=== PATIENT | female | born 1985 | race Caucasian/White ===

== ENCOUNTER 2023-12-22 05:23 | Emergency (ER) | payer MEDICARE, OTHER, SELFPAY ==
[2023-12-22 05:27] VITALS: BP 130/67; BMI 45.0
[2023-12-22 05:51] LABS: % Basophils 0.4 % (0-2); % Eosinophils 0.9 % (0-6); % Immature Granulocytes 0.3 % (0-0.5); % Lymphocytes 10.2 % (20.5-51.1); % Monocytes 5.8 % (1.7-9.3); % Neutrophils 82.4 % (42.2-75.2); Absolute Eosinophils 0.1 10^3/uL (0-0.7); Absolute Monocytes 0.6 10^3/uL (0.1-0.6); Absolute Neutrophils 8.1 10^3/uL (1.4-6.5); Hematocrit 44.8 % (37.0-47.0); Hemoglobin 14.8 g/dL (12.0-16.0); Mean Corpuscular Hgb 29.2 pg (27.0-31.0); Mean Corpuscular Volume 88.4 fL (81.0-99.0); Mean Platelet Volume 10.2 fL (7.4-10.4); Nucleated Red Blood Cells % 0 %; Platelet Count 244 10^3/uL (130-400); Red Blood Cell Count 5.07 10^6/uL (4.20-5.40); Red Cell Dist. Width 13.6 % (11.5-14.5); White Blood Cell Count 9.9 10^3/uL (4.8-10.8)
[2023-12-22] MEDS: ZOFRAN 4 MG IV (05:58)
[2023-12-22 06:00] VITALS: BP 108/61
--- NOTE | 2023-12-22 06:02 | ED.GENMED ---
History of Present Illness
General
Chief Complaint: Chest Pain
Time Seen by Provider: 12/22/23 06:02
History of Present Illness
History of Present Illness:
HPI: Patient presents with upper abdominal pain along with nausea and vomiting. This started around 9 hours ago. She took her most recent dose of Wegovy 3 days ago. She frequently has discomfort after she takes Wegovy for a few days but her
discomfort at this time did not start until last evening. She still has a general unwell feeling but is no longer vomiting. She did receive Zofran upon arrival here prior to my evaluation. She has a sensation of abdominal fullness and similar to
the time that she has required paracentesis.
EXAM:
GENERAL: Well appearing in no distress, elevated BMI
HEENT: Moist oral mucosa
CARDIOVASCULAR: No murmurs, normal heart rate, regular rhythm, No chest wall tenderness
PULMONARY: No respiratory distress, breath sounds are clear and equal
ABDOMEN: Soft with no peritoneal signs, mild to moderate epigastric tenderness
NEUROLOGIC: Excellent strength all extremities, no coordination deficits
PSYCHIATRIC: Appropriate mental status, normal insight and judgement
EXTREMITIES: Nontender, no edema, moves all extremities equally
SKIN: No rash, no lesions
TIME OF INITIAL ENCOUNTER:
NUMBER AND COMPLEXITY OF PROBLEMS ADDRESSED AT THE ENCOUNTER
� Chronic conditions affecting care: Cardiomyopathy, heart failure, hypoplastic left heart syndrome, cirrhosis, has had GI bleed/stomach ulcers, CKD, anxiety/depression, has had paracentesis in the past related to ascites
� Acute Exacerbation and/or Progression of Chronic Illness: This is an acute problem
� Differential Diagnosis includes: Recurrence of ascites, biliary obstruction, ACS very unlikely
AMOUNT AND/OR COMPLEXITY OF DATA TO BE REVIEWED AND ANALYZED
� I performed an independent evaluation of and my interpretation is:
EKG: Sinus 75, rightward axis, suspect RVH, incomplete right bundle branch block with associated ST abnormality not significantly changed from 06/10/2023
CT: Cirrhosis and pneumobilia noted on CT imaging
X-rays: Chest x-ray shows no clear acute abnormality
Laboratory Studies: White count 9.9, hemoglobin 14.8, slightly low bicarb, LFTs unremarkable, BNP slightly elevated however the patient does have a history of CHF/cardiomyopathy, lipase normal, hCG negative
Other:
� Review of other/old records: Reviewed old records, in 2020, the patient had a total bili of 1.4 but otherwise total bili has been normal; patient had one creatinine of 1.9 in January 2020 but otherwise has been normal; the
patient has had 4 troponins checked in the last 6 years all of which were negative. I reviewed the echo from 2011 that showed plastic left ventricle and EF of 50%
� Clinical information was obtained by an independent historian: Family member at bedside
� Prescriptions/Medications Considered but not given:
� Further testing considered but not performed:
RISK OF COMPLICATIONS AND/OR MORBIDITY OR MORTALITY OF PATIENT MANAGEMENT
� Social determinants of health affecting care: Lives at home, has not taken omeprazole in the last couple of days.
� Discussion with other providers:I discussed case with Dr. Witt who evaluated the patient in the ED; unclear etiology of the pneumobilia however the patient is fairly well in appearance and has not had any recent
instrumentation. Planning discharge
� Escalation of care including admission/observation vs risk of discharge considered: Room air sats are borderline low but she denies any current shortness of breath, she states that she has some epigastric pain limiting her
breathing. Her EKG and troponin are unchanged and normal. Bicarb slightly low however the patient's only prefers against any fluids as she is concerned about the possibly of fluid overload.
Past History
Past History
ED Past Medical History: GERD, Psychiatric and Other (congenitial heart defect, Hypoplastic L heart syndrome, Gallstones, cardiac cirrhosis, Fontan's procedure)
ED Past Surgical History: Cardiac (2000 last cardiac surgery for aortic valve surgery. Followed by Dr. Carter, [facility] cardiology.) and Cholecystectomy (May 2018)
Social History
Tobacco: Non-smoker
Alcohol: None
Drug: None
Personal:
Living: with family
Employment: Other
Family History
Family History: Asthma
Phy Exam
Physical Exam
Physical Exam:
See HPI
Scores
Heart Score for Chest Pain Patients
STEMI patient?: Not applicable
Course
Orders/Labs/Results
Orders:
Orders
12/22/23 05:27
Electrocardiogram (*1) Urgent
Reason for Study: Chest Pain
EKG- Treatment ONCE
12/22/23 05:35
Test Result ONCE
12/22/23 05:43
Comprehensive Metabolic Panel Urgent
HCG, Serum Qualitative Screen Urgent
Lipase Urgent
NT-proBNP Urgent
Comment: ADD ON
Troponin I Urgent
12/22/23 05:44
Complete Blood Count/With Diff Urgent
12/22/23 05:57
Ondansetron Injectable [Zofran] 4 mg .ROUTE .STK-MED ONE
Ondansetron Injectable [Zofran] 4 mg .ROUTE .STK-MED ONE
12/22/23 05:58
Ondansetron Injectable [Zofran] 4 mg IV NOW STA
12/22/23 06:18
Famotidine [Pepcid] 20 mg IV NOW STA
12/22/23 06:19
CT Abd/pelvis W Iv Cont Urgent
Comment:
Reason For Exam: upper abd pain vomiting; h/o ascites
12/22/23 06:20
CR Chest - 2 Views Urgent
Comment:
Reason For Exam: mild hypoxia h/o chf
12/22/23 06:22
Add On- LAB Urgent
Tests Added?: bnp
12/22/23 09:51
Consult Surgery [SURGICAL CONSULT] Urgent
Consulting Provider: Kt Witt
Was physician already notified: Yes
Reason for consult: pneumobilia- Dr. Witt aware
Abnormal Lab Results
12/22/23 12/22/23
05:43 05:44
Absolute Neuts (auto) 8.1 H 10^3/uL
(1.4-6.5)
Absolute Lymphs (auto) 1.0 L 10^3/uL
(1.2-3.4)
Neutrophils % 82.4 H %
(42.2-75.2)
Lymphocytes % 10.2 L %
(20.5-51.1)
Chloride 110 H mmol/L
(98-107)
Carbon Dioxide 20 L mmol/L
(22-30)
Glucose 106 H mg/dl
(70-99)
Calcium 10.5 H mg/dl
(8.4-10.2)
12/22/23 05:44
12/22/23 05:43
Vital Signs
Initial and Last Documented VS:
Initial Vital Signs
Temp Pulse Resp BP Pulse Ox
98.5 F 79 18 130/67 95
12/22/23 05:27 12/22/23 05:27 12/22/23 05:27 12/22/23 05:27 12/22/23 05:27
Last Documented Vital Signs
Temp Pulse Resp BP Pulse Ox
98.5 F 77 23 106/60 89
12/22/23 05:27 12/22/23 10:45 12/22/23 10:30 12/22/23 09:30 12/22/23 10:45
*Critical Care Note
Total Time (30-74mins, 75-104mins- exclusive of procedures): Not Applicable
ED Attending Note
-
Portions of this chart may have been created with voice recognition software.� Occasional wrong word or��sound alike� substitutions may have occurred due to the inherent limitations of voice recognition software.
Discharge Plan
Departure
Patient Disposition: Home (Routine Discharge)
Date of Disposition: 12/22/23
Time of Disposition: 10:13
Patient with high blood pressure during this ER visit?: Yes
Discharge Problem:
Abdominal pain
Instructions: Abdominal Pain, Adult ED
Prescriptions:
New
ondansetron HCl 4 mg tablet
4 mg PO Q6H PRN (Reason: nausea and vomiting) Qty: 14 0RF
No Action
aspirin 81 MG tablet,delayed release (DR/EC)
81 mg PO DAILY
omeprazole 20 MG capsule,delayed release(DR/EC)
20 mg PO DAILY
nadolol 20 MG tablet
10 mg PO HS
spironolactone 25 MG tablet
50 mg PO DAILY
torsemide 20 MG tablet
80 mg PO DAILY
potassium chloride 20 MEQ/15 ML liquid
15 ml PO TID
sertraline 50 MG tablet
100 mg PO DAILY
metolazone 5 MG tablet
5 mg PO .MOTH PRN (Reason: Fluid retention/Swelling)
melatonin 10 MG tablet
10 mg PO HS
cetirizine [Zyrtec] 10 mg Tablet
10 mg PO DAILY
Referrals:
Valentine Mullen CRNP [Family Provider] -
Activity Restrictions/Additional Instructions:
Resume omeprazole. I sent a prescription for nausea medicine to your pharmacy.
Interventions
Interventions:
*Risk Screen - Suicide Last Done: 12/22/23 05:27
*General Assessment Last Done: 12/22/23 05:27
*Neglect/Abuse Screening Last Done: 12/22/23 05:27
*ED COVID-19 Vaccine History Last Done: 12/22/23 05:27
*Nursing Disposition Last Done: 12/22/23 10:57
ED- Cardiac Assessment Last Done: 12/22/23 07:55
Discharge Date and Time
Discharge Date/Time: 12/22/23 10:58
Print Language: PASHTO
[2023-12-22 06:05] LABS: HCG, Serum Qualitative Screen Negative
[2023-12-22 06:07] LABS: ALT (SGPT) 19 U/L (0-35); AST (SGOT) 24 U/L (14-36); Albumin 4.5 g/dl (3.5-5.0); Alkaline Phosphatase 72 U/L (38-126); Blood Urea Nitrogen 15 mg/dl (7-17); Calcium 10.5 mg/dl (8.4-10.2); Carbon Dioxide 20 mmol/L (22-30); Chloride 110 mmol/L (98-107); Estimated Creatinine Clearance > 125 ml/min; Glucose 106 mg/dl (70-99); Lipase 233 U/L (23-300); Potassium 4.4 mmol/L (3.5-5.1); Sodium 142 mmol/L (135-145); Total Bilirubin 0.7 mg/dl (0.2-1.3); Total Protein 8.2 g/dl (6.3-8.2); eGFR > 60.00
[2023-12-22 06:17] LABS: Troponin I < 0.012 ng/ml
[2023-12-22] MEDS: PEPCID 20 MG IV (06:53)
[2023-12-22 07:00] VITALS: BP 106/65
[2023-12-22 07:22] LABS: NT-proBNP 622 pg/ml
[2023-12-22 08:00] VITALS: BP 111/68
[2023-12-22 09:30] VITALS: BP 106/60
--- NOTE | 2023-12-22 10:34 | CON.GS ---
Addendum entered and electronically signed by Kt Witt MD 12/22/23 15:26:
I saw and examined the patient independently.
The Harbor Master's note was reviewed and I agree with the note, assessment and plan except where noted below.
Comment: This is a 38-year-old female with significant medical comorbidities including morbid obesity (BMI 45), congenital heart defect status post Fontan and [place] procedures as an , hypoplastic left heart syndrome, cardiogenic cirrhosis
and status post cholecystectomy and umbilical hernia repair in 2018 who presents with abdominal pain as well as nausea and nonbloody nonbilious emesis. She does have a history of an EGD and colonoscopy but no ERCP or sphincterotomy procedure that
she is aware of. She does note that she recently increased her Wegovy and has had increased nausea with. She had a similar episode of nausea and emesis the last time she increased her dosage. Here her vital signs are stable, and her relevant
blood work is normal, her CT scan is significant however for pneumobilia which is somewhat unexpected finding. General surgery consulted comment on this. I reviewed the images myself and agree given the central nature of the air this is likely
pneumobilia than portal venous gas. The etiology of this however is unclear, she has had no recent biliary instrumentation, no sphincterotomy, and on review of the CT scan she has no sign of infection in the liver or pancreas. In addition her
small bowel appears normal and there is no sign of any pneumatosis. Her exam is benign very reassuring. Clinically she feels much better.
Okay for trial of diet and discharge home with close follow-up with her established classification control clerk at [facility].
No role for antibiotics at this time.
All questions answered, patient and her partner agreeable to plan of care.
General surgery will follow if patient is being admitted for observation.
Original Note:
Medical History
-
Chief Complaint: abdominal pain
History of Present Illness:
Ms. 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
who presents with abdominal pain with nausea and vomiting which began yesterday. She notes recent increase in Wegovy dosage and having similar symptoms with this in the past. She is currently experiencing relief in symptoms after administration of
zofran and pepcid in th ED. She notes that she primarily has her follow up at [facility] and sees gastroenterology there. Her last EGD/colonoscopy was last year. She has not had recent procedures/instrumentation.
Past Medical History
Past Medical History: CHF, GERD, Psychiatric (add) and Other (IBS, iron deficiency anemia, cardiogenic cirrhosis, congenital heart abnormalities: hypoplastic left heart, aortic coarctation, severe tricuspid valve regurgitation, AV valve abnormality)
Past Surgical History: Cardiac (Fontan and [place] procedures, pulmonary artery banded, patch coarctation of aorta, AV repairs x2 (total of 5 open heart surgeries as an infant)) and Cholecystectomy (umbilical hernia repair concurrently in 2018 )
Social History
Tobacco: Non-Smoker
Alcohol: None
Living: With Family
Family History
Family History: Reviewed & Not Pertinent
Allergies / Home Medications
Allergy/AdvReac Type Severity Reaction Status Date / Time
latex [Latex] Allergy Hives Verified 12/22/23 05:31
adhesives Allergy Severe Rash Uncoded 12/22/23 05:31
Anesthesia Allergy Unknown Uncoded 12/22/23 05:31
�Medication �Instructions �Recorded �Confirmed �Type
aspirin 81 mg tablet,delayed 81 mg PO DAILY Blood clot 04/21/10 06/10/23 History
release prevention/tx
omeprazole 20 mg capsule,delayed 20 mg PO DAILY Gastrointestinal 11/13/12 06/10/23 History
release issue
nadolol 20 mg tablet 10 mg PO HS Liver/heart disease 05/24/14 06/10/23 History
spironolactone 25 mg tablet 50 mg PO DAILY Fluid 03/23/19 06/10/23 History
retention/Swelling
potassium chloride 20 mEq/15 mL 15 ml PO TID Electrolyte Repletion 07/22/19 06/10/23 History
oral liquid
torsemide 20 mg tablet 80 mg PO DAILY Fluid 07/22/19 06/10/23 History
retention/Swelling
sertraline 50 mg tablet 100 mg PO DAILY Mental 07/23/19 06/10/23 History
Health/Anxiety
metolazone 5 mg tablet 5 mg PO .MOTH PRN Fluid 02/08/20 06/10/23 History
retention/Swelling
melatonin 10 mg tablet 10 mg PO HS Sleep 10/22/20 06/10/23 History
cetirizine 10 mg tablet (Zyrtec) 10 mg PO DAILY 11/28/22 06/10/23 History
ondansetron HCl 4 mg tablet 4 mg PO Q6H PRN nausea and 12/22/23 Rx
vomiting #14 tabs
Review of Systems
-
History Source: Patient and Family
All other systems: Negative unless noted
A 10 point review of systems was completed, and was negative except as per HPI.
Physical Exam
Vital Signs
Temp Pulse Resp BP Pulse Ox
98.5 F 82 20 106/60 92
12/22/23 05:27 12/22/23 09:45 12/22/23 09:45 12/22/23 09:30 12/22/23 09:45
12/21/23 12/22/23 12/23/23
06:59 06:59 06:59
Actual Weight 111.6 kg
Body Mass Index (BMI) 45.0
Lab Results
12/22/23 05:44
12/22/23 05:43
WBC 9.9 10^3/uL (4.8-10.8) 12/22/23 05:44
Hgb 14.8 g/dL (12.0-16.0) 12/22/23 05:44
Hct 44.8 % (37.0-47.0) 12/22/23 05:44
Plt Count 244 10^3/uL (130-400) 12/22/23 05:44
Abs Immat Gran (auto) 0.0 10^3/uL (0-0.05) 12/22/23 05:44
Neutrophils % 82.4 % (42.2-75.2) H 12/22/23 05:44
Physical Exam
General: Well Developed and Well Nourished
HEENT: Moist Mucous Membranes
Respiratory: Non Labored Respirations
GI: Soft and Non Tender
Skin: Warm and Dry
Neuro: Awake, Alert and AO x 3
Psych: Calm
Assessment / Plan
-
38 yo female with h/o congenital heart abnormalities with open heart surgery x5 as (fontan circulation present), cardiac cirrhosis, chf, and cholecystectomy in 2018 presenting with n/v/abdominal discomfort after recent increase in Wegovy.
AFVSS. No leukocytosis. Labs generally unremarkable. CT imaging in the ER with concern for pneumobilia. Symptoms resolved with pepcid/zofran in Ed.
No emergent procedures or admission recommended as she is hemodynamically stable with stable labs and resolution of symptoms. No evidence of infectious etiology.
She plans to discuss Wegovy dosing her her taxi servicer
Recommend follow up with her classification control clerk as [facility] for further work up/treatment
== END 2023-12-22 10:58 | disposition home or self-care (01) ==
LOC: EMR 05:23
PROVIDERS: Student in an Organized Health Care Education/Training Program; CONSULT PHYSICIAN Surgery; EMERGENCY PHYSICIAN Emergency Medicine; FAMILY PHYSICIAN Nurse Practitioner
DX: R07.89 Other chest pain (principal); R10.10 Upper abdominal pain, unspecified; R11.2 Nausea with vomiting, unspecified; I50.9 Heart failure, unspecified; K21.9 Gastro-esophageal reflux disease without esophagitis; K58.9 Irritable bowel syndrome, unspecified; Z82.49 Family history of ischemic heart disease and other diseases of the circulatory system; Z90.49 Acquired absence of other specified parts of digestive tract
CPT/HCPCS: 99282; 96374; 96375; 71046; 74177; 80053; 83690; 83880; 84484; 84703; 85025; 93005; Q9967

== ENCOUNTER → 2023-12-26 14:55 | Outpatient (REF) | payer MEDICARE, OTHER, SELFPAY | LOC: RAD 14:55 | PROVIDERS: ATTENDING PHYSICIAN Nurse Practitioner | DX: R10.84 Generalized abdominal pain (principal); Q23.4 Hypoplastic left heart syndrome | CPT/HCPCS: 76700 ==

== ENCOUNTER → 2024-03-09 08:12 | Outpatient (REF) | payer MEDICARE, OTHER, SELFPAY | LOC: EMG 08:12 | PROVIDERS: ATTENDING PHYSICIAN Nurse Practitioner | DX: G56.03 Carpal tunnel syndrome, bilateral upper limbs (principal); R20.0 Anesthesia of skin; R20.2 Paresthesia of skin | CPT/HCPCS: 95886; 95911 ==

== ENCOUNTER 2024-07-23 13:28 | Emergency (ER) | payer MEDICARE, OTHER, SELFPAY ==
[2024-07-23 13:28] VITALS: BMI 40.1
[2024-07-23 13:33] VITALS: BP 146/103
--- NOTE | 2024-07-23 14:46 | ED.GENMED ---
History of Present Illness
<Shreya George PA-C - Last Filed: 07/23/24 17:35>
General
Chief Complaint: Nose Bleed
Source: patient
Exam Limitations: none
Time Seen by Provider: 07/23/24 14:22
Nursing documentation reviewed up to this point in time: agreed with
History of Present Illness
History of Present Illness:
39 y/o F with h/o hypoplastic L heart 5 open heart surgeries, cardiac cirrhosis, cardiomyopathy
heart transplatn list
here with spontaneous nose bleed L nostril after blowing nose at 12 noon
hasn't stopped
feels it drip down back of her throat as well
no h/o bleeding form anywhere else
no syncope or lightheadedness
has had intermittent nose bleeding off and on all week but never had something this bad
no recen tcough/cold symptoms
no thinners
says her plt is usually normal
Past History
<Shreya George PA-C - Last Filed: 07/23/24 17:35>
Past History
ED Past Medical History: GERD, Psychiatric and Other (congenitial heart defect, Hypoplastic L heart syndrome, Gallstones, cardiac cirrhosis, Fontan's procedure)
ED Past Surgical History: Cardiac (2000 last cardiac surgery for aortic valve surgery. Followed by Dr. Carter, [facility] cardiology.) and Cholecystectomy (May 2018)
Social History
Tobacco: Non-smoker
Alcohol: None
Drug: None
Personal:
Living: with family
Employment: Other
Family History
Family History: Asthma
Review of Systems
<DAVID Robb Last Filed: 07/23/24 17:35>
Review of Systems
Allergies reviewed?: Yes
All Other Systems: Not applicable
Phy Exam
<DAVID Robb Last Filed: 07/23/24 17:35>
Physical Exam
Physical Exam:
GENERAL: Alert , in no apparent distress
EYE: pupils equal and reactive
NECK: Supple
ENT:posterior pharynx small trickle bleeding
L anterior nare full of blood, active bleeding, some clots with blowing
CARDIAC:irregular, frequent PVCs no edema
LUNGS: Clear breath sounds bilaterally, no acute respiratory distress, no wheezes/rales/rhonchi, occ cough
ABDOMEN: Soft, without focal tenderness, no r/g, no cvat, normal bowel sounds
NEUROLOGICAL: Alert and oriented, no focal neuro deficits
SKIN: Warm and dry, skin intact.
MUSCULOSKELETAL: No edema, well perfused.
PSYCH: Normal and appropriate interaction.
Course
<Shreya George PA-C - Last Filed: 07/23/24 17:35>
Orders/Labs/Results
Orders:
Orders
07/23/24 14:23
Tranexamic Acid 1,000 mg .ROUTE .STK-MED ONE
07/23/24 14:30
Oxymetazoline HCl [Afrin Nasal Mitchell] 30 sprays .ROUTE .STK-MED ONE
07/23/24 15:04
Complete Blood Count/With Diff Urgent
Comprehensive Metabolic Panel Urgent
PTT Urgent
Prothrombin Time Urgent
Abnormal Lab Results
07/23/24
15:04
WBC 14.5 H 10^3/uL
(4.8-10.8)
RBC 5.41 H 10^6/uL
(4.20-5.40)
Abs Immat Gran (auto) 0.1 H 10^3/uL
(0-0.05)
Absolute Neuts (auto) 12.2 H 10^3/uL
(1.4-6.5)
Absolute Monos (auto) 0.8 H 10^3/uL
(0.1-0.6)
Immature Gran % 0.9 H %
(0-0.5)
Neutrophils % 84.0 H %
(42.2-75.2)
Lymphocytes % 8.3 L %
(20.5-51.1)
Potassium 3.3 L mmol/L
(3.5-5.1)
BUN 23 H mg/dl
(7-17)
Total Bilirubin 1.5 H mg/dl
(0.2-1.3)
Total Protein 8.5 H g/dl
(6.3-8.2)
07/23/24 15:04
07/23/24 15:04
Vital Signs
Initial and Last Documented VS:
Initial Vital Signs
Temp Pulse Resp BP Pulse Ox
36.8 C 95 20 146/103 96
07/23/24 13:33 07/23/24 13:33 07/23/24 13:33 07/23/24 13:33 07/23/24 13:33
Last Documented Vital Signs
Temp Pulse Resp BP Pulse Ox
36.8 C 85 17 112/67 92
07/23/24 13:33 07/23/24 16:00 07/23/24 16:00 07/23/24 15:11 07/23/24 16:00
<Sam Jimenez, DO - Last Filed: 07/23/24 15:58>
Orders/Labs/Results
Orders:
Orders
07/23/24 14:23
Tranexamic Acid 1,000 mg .ROUTE .STK-MED ONE
07/23/24 14:30
Oxymetazoline HCl [Afrin Nasal Mitchell] 30 sprays .ROUTE .STK-MED ONE
07/23/24 15:04
Complete Blood Count/With Diff Urgent
Comprehensive Metabolic Panel Urgent
PTT Urgent
Prothrombin Time Urgent
Abnormal Lab Results
07/23/24
15:04
WBC 14.5 H 10^3/uL
(4.8-10.8)
RBC 5.41 H 10^6/uL
(4.20-5.40)
Abs Immat Gran (auto) 0.1 H 10^3/uL
(0-0.05)
Absolute Neuts (auto) 12.2 H 10^3/uL
(1.4-6.5)
Absolute Monos (auto) 0.8 H 10^3/uL
(0.1-0.6)
Immature Gran % 0.9 H %
(0-0.5)
Neutrophils % 84.0 H %
(42.2-75.2)
Lymphocytes % 8.3 L %
(20.5-51.1)
Potassium 3.3 L mmol/L
(3.5-5.1)
BUN 23 H mg/dl
(7-17)
Total Bilirubin 1.5 H mg/dl
(0.2-1.3)
Total Protein 8.5 H g/dl
(6.3-8.2)
07/23/24 15:04
07/23/24 15:04
Vital Signs
Initial and Last Documented VS:
Initial Vital Signs
Temp Pulse Resp BP Pulse Ox
36.8 C 95 20 146/103 96
07/23/24 13:33 07/23/24 13:33 07/23/24 13:33 07/23/24 13:33 07/23/24 13:33
Last Documented Vital Signs
Temp Pulse Resp BP Pulse Ox
36.8 C 85 17 112/67 92
07/23/24 13:33 07/23/24 16:00 07/23/24 16:00 07/23/24 15:11 07/23/24 16:00
Procedures
<Shreya George PA-C - Last Filed: 07/23/24 17:35>
Nosebleed
Drug treatment: Neosynephrine and Tranexamic Acid
Treatment: local pressure applied and other
Additional information:
7.5 packing attempted but pt did not tolerate; 5.5 cm packing placed
<Shreya George PA-C - Last Filed: 07/23/24 17:35>
MDM/Problems Addressed
Differential Diagnosis Includes:
epistaxis
MDM/Problems Addressed:
39-year-old female with history of cardiomyopathy, hypoplastic left heart, multiple cardiac surgeries previously and cardiac cirrhosis of the liver presents for spontaneous epistaxis after blowing her nose today. She said a nosebleed off and on for
the last several days but it was minimal until today. She could not stop the bleeding. It was going down the back of her throat. She did cough up a few clots from the back of her throat. She is not anticoagulated and has normal platelet count.
On exam the patient was oozing from her left nostril, no obvious source but difficult to see. I had her blow her nose and she had multiple clots from the nose, posterior pharynx she was also bringing up some bloody mucus. I did not she had active
bruises of back of her throat. Patient had TXA cotton ball and Piyush-Synephrine in her nose but she was bleeding quite briskly and thus I decided to pack her. I initially tried a 5.5 cm packing and then she was still having some sensation it was
oozing in the back of her throat so I attempted with a 7.5 however it was very uncomfortable, it ended up replacing with a 5.5 cm packing and inflating initially with saline and then with air. Patient had subsequent cessation of the anterior
epistaxis. She felt a little bit of oozing from the back of her throat but there was again visualized no bleeding and she is much more comfortable. Her labs are reassuring. I will cover her with a short course of antibiotics because of her
cardiac history. She already made an appointment with ENT for 3 days for now.
<Shreya George PA-C - Last Filed: 07/23/24 17:35>
*Critical Care Note
Total Time (30-74mins, 75-104mins- exclusive of procedures): Not Applicable
ED Attending Note
<Shreya George PA-C - Last Filed: 07/23/24 17:35>
-
Portions of this chart may have been created with voice recognition software.� Occasional wrong word or��sound alike� substitutions may have occurred due to the inherent limitations of voice recognition software.
<Sam Jimenez DO - Last Filed: 07/23/24 15:58>
ED Attending Note
Patient seen and examined by attending physician: Yes
I performed the substantive portion of visit, reviewed & personally made and approve the management plan that is documented in note by myself or LAYO.: Yes
ED Attending Note:
I evaluated the patient at bedside. I placed a new 5.5 cm rapid Rhino in the left nostril and inflated about 5 mL of water. She has an ongoing trickle sensation but I visualized the posterior oropharynx�large bifid uvula noted but no obvious gross
blood.
Discharge Plan
Departure
Patient Disposition: Home (Routine Discharge)
Date of Disposition: 07/23/24
Time of Disposition: 16:28
Patient with high blood pressure during this ER visit?: No
Condition: Fair
Covid-19: Not Applicable
Discharge Problem:
Acute anterior epistaxis
Instructions: Nosebleeds (DC)
Prescriptions:
New
amoxicillin-pot clavulanate [Augmentin] 500-125 mg tablet
1 tab PO BID Qty: 10 0RF
No Action
aspirin 81 MG tablet,delayed release (DR/EC)
81 mg PO DAILY
omeprazole 20 MG capsule,delayed release(DR/EC)
20 mg PO DAILY
nadolol 20 MG tablet
10 mg PO HS
spironolactone 25 MG tablet
50 mg PO DAILY
torsemide 20 MG tablet
80 mg PO DAILY
potassium chloride 20 MEQ/15 ML liquid
15 ml PO TID
sertraline 50 MG tablet
100 mg PO DAILY
metolazone 5 MG tablet
5 mg PO .MOTH PRN (Reason: Fluid retention/Swelling)
melatonin 10 MG tablet
10 mg PO HS
cetirizine [Zyrtec] 10 mg Tablet
10 mg PO DAILY
ondansetron HCl 4 mg tablet
4 mg PO Q6H PRN (Reason: nausea and vomiting) Qty: 14 0RF
Referrals:
Mike Thomas MD [Active] - Follow up in 2-3 days
Valentine Mullen CRNP [Family Provider] -
Activity Restrictions/Additional Instructions:
Leave the packing in place until your ENT appointment on Friday. Sleep with an extra pillow to keep yourself upright. Take Augmentin twice a day to prevent infection. Should you have worsening bleeding from the back or from your nostril this not
controlled you can return to the ER. Otherwise follow-up with your doctors.
Interventions
Interventions:
*Risk Screen - Suicide Last Done: 07/23/24 15:15
*General Assessment Last Done: 07/23/24 13:33
*Neglect/Abuse Screening Last Done: 07/23/24 15:15
ED- Fall Risk Assessment Last Done: 07/23/24 15:15
*Nursing Disposition Last Done: 07/23/24 16:38
ED-EENT Assessment Last Done: 07/23/24 15:15
Discharge Date and Time
Discharge Date/Time: 07/23/24 16:55
Print Language: MALAY
[2024-07-23 15:11] VITALS: BP 112/67
[2024-07-23 15:24] LABS: % Basophils 0.5 % (0-2); % Eosinophils 0.6 % (0-6); % Immature Granulocytes 0.9 % (0-0.5); % Lymphocytes 8.3 % (20.5-51.1); % Monocytes 5.7 % (1.7-9.3); Absolute Basophils 0.1 10^3/uL (0-0.2); Absolute Eosinophils 0.1 10^3/uL (0-0.7); Absolute Immature Granulocytes 0.1 10^3/uL (0-0.05); Absolute Lymphocytes 1.2 10^3/uL (1.2-3.4); Absolute Monocytes 0.8 10^3/uL (0.1-0.6); Absolute Neutrophils 12.2 10^3/uL (1.4-6.5); Hematocrit 46.4 % (37.0-47.0); Hemoglobin 15.9 g/dL (12.0-16.0); Mean Corp Hgb Conc. 34.3 g/dL (33.0-37.0); Mean Corpuscular Hgb 29.4 pg (27.0-31.0); Mean Corpuscular Volume 85.8 fL (81.0-99.0); Nucleated Red Blood Cells % 0 %; Platelet Count 360 10^3/uL (130-400); Red Blood Cell Count 5.41 10^6/uL (4.20-5.40); Red Cell Dist. Width 13.5 % (11.5-14.5); White Blood Cell Count 14.5 10^3/uL (4.8-10.8)
[2024-07-23 15:30] LABS: INR 1.08; PT 14.3 Sec (11.4-14.6)
[2024-07-23 15:31] LABS: APTT 34.5 Sec (23.4-35.0)
[2024-07-23 15:42] LABS: ALT (SGPT) 26 U/L (0-35); AST (SGOT) 27 U/L (14-36); Albumin 4.9 g/dl (3.5-5.0); Alkaline Phosphatase 73 U/L (38-126); Blood Urea Nitrogen 23 mg/dl (7-17); Calcium 10.1 mg/dl (8.4-10.2); Carbon Dioxide 26 mmol/L (22-30); Chloride 99 mmol/L (98-107); Estimated Creatinine Clearance > 125 ml/min; Glucose 94 mg/dl (70-99); Potassium 3.3 mmol/L (3.5-5.1); Sodium 138 mmol/L (135-145); Total Bilirubin 1.5 mg/dl (0.2-1.3); Total Protein 8.5 g/dl (6.3-8.2); eGFR > 60.00
== END 2024-07-23 16:55 | disposition home or self-care (01) ==
LOC: EMR 13:28
PROVIDERS: Physician Assistant; EMERGENCY PHYSICIAN Emergency Medicine; FAMILY PHYSICIAN Nurse Practitioner
DX: R04.0 Epistaxis (principal); I42.9 Cardiomyopathy, unspecified; K21.9 Gastro-esophageal reflux disease without esophagitis; Q35.7 Cleft uvula; Z90.49 Acquired absence of other specified parts of digestive tract
CPT/HCPCS: 99282; 30901; 80053; 85025; 85610; 85730

== ENCOUNTER → 2024-10-18 11:03 | Outpatient (REF) | payer MEDICARE, OTHER, SELFPAY | LOC: RAD 11:03 | PROVIDERS: ATTENDING PHYSICIAN Nurse Practitioner | DX: N92.6 Irregular menstruation, unspecified (principal) | CPT/HCPCS: 76830; 76856 ==

== ENCOUNTER → 2025-05-19 12:36 | Outpatient (REF) | payer MEDICARE, OTHER, SELFPAY | LOC: PAVMRI 12:36 | PROVIDERS: ATTENDING PHYSICIAN Nurse Practitioner; FAMILY PHYSICIAN Nurse Practitioner | DX: G43.719 Chronic migraine without aura, intractable, without status migrainosus (principal) | CPT/HCPCS: 70553; A9575 ==